=== PATIENT | female | born 1990 | race Two or more races ===

== ENCOUNTER 2018-05-08 17:44 | Observation (INO) | payer MEDICAID ==
[~2018-05-08] VITALS: Ht 152.4 cm; Wt 59.0 kg
[2018-05-08] MEDS ORDERED: LACTATED RINGERS 1,000 ML IV SCH (18:30)
[2018-05-08] MEDS ORDERED: CEFAZOLIN 1000MG PREMIX 50 ML IV SCH (18:30)
[2018-05-08 18:35] LABS: CLARITY URINE CLOUDY (CLEAR); COLOR URINE YELLOW (YELLOW); KETONES URINE NEGATIVE (NEGATIVE); LEUKOCYTE ESTERASE URINE TRACE (NEGATIVE); NITRITE URINE NEGATIVE (NEGATIVE); OCCULT BLOOD URINE 2+ (NEGATIVE); PH URINE 8.5 (4.5-8.0); PROTEIN URINE NEGATIVE (NEGATIVE); SPECIFIC GRAVITY URINE 1.012 (1.005-1.030); UROBILINOGEN URINE 0.2 E.U./dL (0.2-1.0)
[2018-05-08] MEDS ORDERED: PREN-142 MT (18:54)
== END 2018-05-08 20:45 | disposition home or self-care (01) ==
LOC: L&D 17:44
PROVIDERS: ADMIT Obstetrics & Gynecology; ATTEND Obstetrics & Gynecology
DX: O46.92 Antepartum hemorrhage, unspecified, second trimester (principal); Z3A.23 23 weeks gestation of pregnancy
CPT/HCPCS: 76805; 81003; 96365; 99281; G0378; J0690; 96360

== ENCOUNTER 2022-09-22 20:56 | Emergency (ER) | payer MEDICAID ==
[~2022-09-22] VITALS: Ht 172.7 cm; Wt 60.0 kg
[~2022-09-22 20:56] MED LIST: PRENATAL ONE T1 EACH MT
[2022-09-22 21:04] VITALS: BP 117/84
[2022-09-22] MEDS ORDERED: KETOROLAC 15MG/ML VIAL IM ONE (21:30)
[2022-09-22] MEDS ORDERED: NAPR500T7 MT (22:59)
[2022-09-22] MEDS ORDERED: CYCL10TA21 MT (22:59)
== END 2022-09-22 23:15 | disposition home or self-care (01) ==
LOC: ER 21:03
DX: R07.89 Other chest pain (principal); V43.52XA Car driver injured in collision with other type car in traffic accident, initial encounter; Y93.89 Activity, other specified; Y92.488 Other paved roadways as the place of occurrence of the external cause
CPT/HCPCS: 71045; 93005; 96372; 99283; J1885; Z7610